=== PATIENT | female | born 1970 | race Two or more races ===

== ENCOUNTER → 2024-04-19 | Outpatient (CLI) | payer BC, SELFPAY ==
[2024-04-19 13:23] LABS: Collection Type, Urine Clean Catch
[2024-04-19 13:45] LABS: Basophils % (Auto) 1 % (0-2.5); Eosinophils # (Auto) 0.3 Thou/mm3 (0.0-0.5); Eosinophils % (Auto) 4 % (0-10); Hematocrit 40.2 % (36.0-46.0); Hemoglobin 13.4 g/dL (12.0-16.0); Immature Granulocytes % (Auto) 0 % (0-0); Immature Granulocytes Auto 0.01 Thou/mm3 (0.00-0.00); Lymphocytes # (Auto) 2.5 Thou/mm3 (1.0-4.8); Lymphocytes % (Auto) 42 % (10-50); Mean Corpuscular HGB Conc 33.3 g/dl (31.0-37.0); Mean Corpuscular Hemoglobin 29.6 pg (25.0-35.0); Mean Corpuscular Volume 89 fL (80-100); Monocytes # (Auto) 0.4 Thou/mm3 (0.0-0.8); Monocytes % (Auto) 7 % (0-12); Neutrophils # (Auto) 2.8 Thou/mm3 (1.8-7.7); Neutrophils % (Auto) 46 % (37-80); Nucleated Red Blood Cell % 0 /100 WBC (0); Platelet Count 117 Thou/mm3 (140-440); RDW Standard Deviation 44.2 fL (36.4-46.3); Red Blood Count 4.52 Miln/mm3 (4.00-5.20)
[2024-04-19 13:49] LABS: Glucose Estimated Average 209 mg/dL (80-131); Hemoglobin A1C 8.9 % Hgb (4.8-6.0)
[2024-04-19 13:51] LABS: Bacteria,Urine Rare; Bilirubin,Urine Negative (Negative); Blood,Urine Negative (Negative); Color,Urine Yellow (Lt Yel-Yel); Glucose, Urine 1+ (Negative); Hyaline Casts,Urine < 1 /hpf (0-1); Ketones,Urine Negative (Negative); Leukocyte Esterase,Urine Positive (Negative); Nitrite,Urine Negative (Negative); PH,Urine 5.5 (5.0-7.0); Protein,Urine 1+ (Neg - Trace); RBC,Urine 4 /hpf (0-3); Squamous Epithelial Cell,Urine 15 /hpf (0-5); Urobilinogen,Urine Negative mg/dL (0.0-1.0); WBC,Urine 25 /hpf (0-5)
[2024-04-19 13:56] LABS: Alanine Aminotransferase 74 U/L (10-49); Albumin, Serum 4.4 gm/dL (3.5-5.0); Albumin/Globulin Ratio 1.6 (1.2-2.2); Alkaline Phosphatase 181 U/L (46-116); Anion Gap 10 (7-16); Aspartate Amino Transferase 43 U/L (0-34); BUN/Creatinine Ratio 25 Ratio (12-20); Bilirubin,Total 0.5 mg/dL (0.3-1.2); Blood Urea Nitrogen 15 mg/dL (9-23); Calcium 9.2 mg/dL (8.3-10.6); Calcium (Corrected) 9.2 mg/dL (8.5-10.1); Carbon Dioxide 23.5 mMol/L (20.0-31.0); Cardiac Risk Estimate 3.1 RATIO (3.7-5.6); Chloride 102 mMol/L (98-107); Cholesterol 168 mg/dL (132-200); Creatinine (Component) 0.6 mg/dL (0.6-1.3); Globulin 2.8 gm/dL (2.3-3.5); Glucose 229 mg/dL (74-106); HDL Cholesterol 55 mg/dL (40-60); LDL Cholesterol,Calculated 84 mg/dL (0-130); Osmolality,Calculated 277 (275-295); Potassium 3.9 mMol/L (3.4-5.1); Sodium 135 mMol/L (136-145); Thyroid Stimulating Hormone 1.74 uIU/mL (0.55-4.78); Total Protein 7.2 gm/dL (5.7-8.2); Triglycerides 143 mg/dL (30-150); eGFR > 60 See Note
[2024-04-19 13:59] LABS: Clarity,Urine Hazy (Clear/Hazy)
[2024-04-19 14:05] LABS: Creatinine MALB Rnd Ur 189 mg/dL (30-125); Microalbumin Creat Ratio 116 mg/gCrea (<30); Microalbumin, Random Urine 219 mg/L (0-300)
== END | disposition home or self-care (01) ==
LOC: COPL 12:07
PROVIDERS: PCP Internal Medicine; Referring Provider Internal Medicine; Visit Provider Internal Medicine
DX: N17.9 Acute kidney failure, unspecified (principal); E11.9 Type 2 diabetes mellitus without complications; I10 Essential (primary) hypertension; E78.5 Hyperlipidemia, unspecified
CPT/HCPCS: 36415; 80053; 80061; 81001; 82043; 82570; 83036; 84443; 85025

== ENCOUNTER → 2024-05-23 | Outpatient (CLI) | payer BC, SELFPAY ==
--- NOTE | 2024-05-23 09:21 | XR_ITS ---
Examination: Hand, left 3 views Technique: Hand AP, oblique, lateral 3 views Date and time of exam: May 23, 2024 0926 hours INDICATIONS: Left hand pain beginning 2 months ago. FINDINGS: Significant osteopenia No fracture or dislocation Mild osteoarthritis interphalangeal joints first carpometacarpal joint radiocarpal joint No erosive arthritis No opaque foreign bodies or cortical bone destruction IMPRESSION: Significant osteopenia Mild osteoarthritis
== END | disposition home or self-care (01) ==
PROVIDERS: PCP Internal Medicine; Referring Provider Nurse Practitioner Gerontology; Visit Provider Nurse Practitioner Gerontology
DX: M85.842 Other specified disorders of bone density and structure, left hand (principal); M19.042 Primary osteoarthritis, left hand
CPT/HCPCS: 73130

== ENCOUNTER 2024-09-29 15:05 | Observation (INO) | payer BC, SELFPAY ==
[2024-09-29] VITALS (11 sets, daily range): BP systolic 143–165; BP diastolic 82–110; PULSE 83–107; RESP 14–95; TEMP 36.2–37; O2SAT 93–99; BMI 32.4
--- NOTE | 2024-09-29 15:13 | EKG_ITS ---
[facility] Test Date: 2024-09-29 Pat Name: THOMAS ARIAS Department: Room: - Gender: Female Dolly Operator: : 1970 Requested By: Jorgito Villareal (GIOVANNA) Order Number: [id number] Reading MD: Jorgito Villareal (EEG TECHNICIAN) Measurements Intervals Brave Rate: 93 P: 45 OR: 180 QRS: -7 QRSD: 81 T: 24 QT: 375 QTc: 468 Interpretive Statements SINUS RHYTHM POSSIBLE ANTERIOR MYOCARDIAL INFARCTION , OF INDETERMINATE AGE [30 ms Q WAVE IN V3/V4, OR R < 0.2 mV IN V4] Compared to ECG 05/14/2021 08:48:21 Myocardial infarct finding now present /store/S0/[id number]/ecg/[id number].pdf
[2024-09-29] MEDS: SODIUM CHLORIDE 0.9% 1000 ML 1,000 ML 999 ML IV (15:47)
[2024-09-29] MEDS: ONDANSETRON INJ 2 MG/ML INJ 2 ML 4 MG IVP (15:47)
[2024-09-29 15:50] LABS: Base Excess, Venous 2 (-3-3); O2 Saturation, Venous 67 % (96-97); PCO2, Venous 41 mmHg (36-56); PO2, Venous 33 mmHg (15-58); pH, Venous 7.42 (7.33-7.66)
--- NOTE | 2024-09-29 15:50 | PD.EDADULT ---
ED General RME/HPI General Chief complaint: Nausea/Vomiting/Diarrhea Stated complaint: VOMITING AND DIZZY Time Seen by Provider: 09/29/24 15:08 Arrival date/time: 09/29/24 15:05 Limitations: no limitations RME / HPI RME / HPI narrative: DR. MORATAYA MAIN ED EVALUATION: 54 year old female presents to the Emergency Department accompanied by her with complaint of dizziness onset 8 PM yesterday. Per patient, her dizziness got worse since 830 AM today and she started having nausea, vomiting and diarrhea, brown colored. She states when she lays down her symptoms are better but when she gets up they are worse; per she has been in bed. She states she has history of diabetes and she has not taken her medications because she ran out a month ago; her blood glucose at home was 420 . She states she had a good breakfast consisting of eggs and potatoes. PMHx: History of seizures in the past, years ago. Diabetes, off medications in the last month. Family history is significant for diabetes, mother. Social Hx: No tobacco, alcohol, or substance use. Related Data Home Medications ?Medication ?Instructions ?Recorded ?Confirmed gabapentin 100 mg capsule 100 mg PO HS 05/14/21 06/20/23 metformin 500 mg tablet,extended 1,000 mg PO BID 05/14/21 06/20/23 release 24 hr empagliflozin 10 mg tablet 10 mg PO QDAY 06/20/23 06/20/23 (Jardiance) semaglutide 14 mg tablet (Rybelsus) 14 mg PO DAILY 06/20/23 06/20/23 Allergies Allergy/AdvReac Type Severity Reaction Status Date / Time morphine Allergy Seizure Verified 09/29/24 15:05 Review of Systems Review of Systems Systems Reviewed: All systems reviewed, normal except as documented Past Medical History Past Medical History NEUROLOGIC: Positive Neurological Disorders GASTROINTESTINAL: Positive Gastrointestinal Disorders and Hemorrhoids REPRODUCTIVE: Positive Previous Pregnancies ENDOCRINE: Positive Endocrine Disorders, Diabetes Mellitus Type 2 and Hypothyroidism OTHER HISTORY: Positive Shingles, Anesthesia Reactions (SENSITIVE TO MEDICATIONS), Chicken Pox, Measles and Mumps Family History FAMILY HISTORY: Positive Family Cardiac Disorders Surgical History SURGICAL: Positive Tubal Ligation and Section (x2) Social History SMOKING STATUS: Never smoker SUBSTANCE USE: does not use ALCOHOL: Never ED Exam General Limitations: Present no limitations General appearance: Present alert and in no apparent distress Head Head exam: Present atraumatic, normocephalic and normal inspection Eye Eye exam: Present normal appearance, PERRL and EOMI ENT ENT exam: Present normal exam, normal oropharynx and mucous membranes moist Neck Neck exam: Present normal inspection, full ROM and trachea midline Chest Chest inspection: Present normal inspection and symmetric chest wall rise Respiratory Respiratory exam: Present normal lung sounds bilaterally Cardiovascular Cardiovascular exam: Present regular rate, normal rhythm and normal heart sounds Abdominal Exam Abdominal exam: Present soft and normal bowel sounds Extremities Exam Extremities exam: Present normal inspection and full ROM; Absent pedal edema or joint swelling Back Exam Back exam: Present normal inspection and full ROM Neurological Exam Neurological exam: Present alert, oriented X3, CN II-XII intact and other (nonfocal) Psychiatric Psychiatric exam: Present normal affect and normal mood Skin Skin exam: Present warm, dry, intact and normal color Course Quality Measures none Orders Category Date Time Status Bedside Blood Glucose NOW Care 09/29/24 15:13 Active Bedside Blood Glucose NOW Care 09/29/24 16:18 Active Disc Pad Plate Filler NOW Care 09/29/24 16:18 Active Continuous Pulse Oximetry NOW Care 09/29/24 16:18 Completed EKG (ED ONLY) *Do not use* NOW Care 09/29/24 15:13 Completed In and Out Catheter NEEDED Care 09/29/24 16:18 Active Insert IV NOW Care 09/29/24 15:13 Active Insert IV NOW Care 09/29/24 16:18 Active NIH Stroke Scale now Care 09/29/24 16:18 Active NPO NOW Care 09/29/24 16:18 Active Neuro Check Q15MIN Care 09/29/24 16:18 Active Nurse Swallow Screen x1 Care 09/29/24 16:18 Active Consult to Neurology / Tele-Neurology Routine Cons 09/29/24 16:[address] angio stroke protocol Stat Exams 09/29/24 16:[address] stroke protocol Stat Exams 09/29/24 16:18 Completed EKG (ED Only) Stat Exams 09/29/24 15:13 Draft A1C [Glycohemoglobin w (eAG)] Stat Lab 09/29/24 15:41 Completed Alcohol, Blood Medical Stat Lab 09/29/24 15:41 Results B-Type Natriuretic Peptide Stat Lab 09/29/24 15:41 Completed Beta Hydroxybutyrate Stat Lab 09/29/24 15:41 Results CBC Stat Lab 09/29/24 15:41 Completed Comprehensive Metabolic Panel Stat Lab 09/29/24 15:41 Results Drug Screen,Urine Stat Lab 09/29/24 17:19 Ordered HCG,Qualitative Serum Stat Lab 09/29/24 15:41 Results Magnesium Stat Lab 09/29/24 15:41 Results Partial Thromboplastin Time Stat Lab 09/29/24 15:41 Completed Prothrombin Time with INR Stat Lab 09/29/24 15:41 Completed Troponin I Stat Lab 09/29/24 15:41 Results Urinalysis Stat Lab 09/29/24 17:19 Ordered Urinalysis Stat Lab 09/29/24 17:19 Ordered Urine Culture Stat Lab 09/29/24 17:19 Ordered VBG [Venous Blood Gas] Stat Lab 09/29/24 15:41 Completed Ondansetron Inj [Zofran Inj] Med 09/29/24 15:14 Discontinued 4 mg IVP X1 ONE Sodium Chloride 0.9% 1000 ml [Ns] 1,000 ml Med 09/29/24 15:12 Discontinued IV 999 mls/hr Sodium Chloride 0.9% 1000 ml [Ns] 1,000 ml Med 09/29/24 16:30 Active IV Q10H Oxygen Delivery NOW RT 09/29/24 16:18 Active Vital Signs Vital signs: Vital Signs Pulse Rate 107 H 09/29/24 15:10 Respiratory Rate 20 09/29/24 15:10 Blood Pressure 165/89 H 09/29/24 15:10 Pulse Oximetry (%) 99 09/29/24 15:10 Oxygen Delivery Method Room Air 09/29/24 15:10 Discharge Plan Prescriptions/Referrals Prescriptions/Med Rec: No Action gabapentin 100 mg Capsule 100 mg PO HS metformin 500 mg tablet extended release 24 hr 1,000 mg PO BID Jardiance 10 mg tablet 10 mg PO QDAY Rybelsus 14 mg tablet 14 mg PO DAILY Referrals: No Primary/Family,Physician [Referring Provider] - In 1 week Patient/Caregiver Discharge Instructions Print Language: Albanian [facility] Narrative Sign out note: 1800: Patient was signed out to Dr. Elise. Past medical, surgical, social and family history reviewed. Vitals and home medications reviewed. Results and treatment plan discussed. They will assume the care of the patient at this time and will follow the patient, pending head/neck CTA, reaminder of labs, and final disposition. [facility] hospital course: I, Gisselle Yordy, am scribing for and in the presence of Dr. Morataya. Clinical Information Provided by patient Medical Records Reviewed [facility] Meds/Rx Considered, not Ordered None Labs/Rad/Tests considered, not Ordered None Chronic Illness/Social Conditions Add or document further as needed: PMHx: History of seizures in the past, years ago. Diabetes, off medications in the last month. Family history is significant for diabetes, mother. Social Hx: No tobacco, alcohol, or substance use. EKG Interpretation EKG #1: Date/time of EK09/29/24 3:30 pm EKG interpretation: sinus rhythm, rate 93, poor R wave progression, no acute changes, TX interval 180 ms, QRS duration 81 ms, QT/QTc 375/426, P-R-T axis 45, -7, 24 Imaging Imaging interpretation: interpreted by me Provider imaging interpretation(s): Head CT is negative. Still pending head/neck CTA. Radiology reports / interpretation(s): Procedure(s): CT stroke protocol Accession Number(s): [id number] cc: Pedro Morataya MD; Eb Corea MD; NO PRIMARY/FAMILY,PHYSICIAN~ Examination: CT brain head without contrast. 2-D sagittal coronal reconstructions Date and time of exam:July 30, 2024 1630 hours Comparison July 06, 2020 INDICATIONS: Stroke alert, onset focal neurologic deficit today CTDI: vol (mGy):48.5 DLP: (mGycm):934 Technique: Multiple CT axial sections of the brain have been obtained, 5 mm slice thickness. Contrast has not been administered. 2-D sagittal, coronal reconstructions have been obtained Low dose protocols were performed. One or more of the following dose reduction techniques were used; automated exposure control, adjustment of the mA and/or KV according to patient size, use of iterative reconstruction technique. Findings: No significant ventricular enlargement. Intra-axial or extra-axial hemorrhage density is not seen. No mass effect or midline shift Basal cisterns are not remarkable. Fourth ventricle is midline. Cranial vault intact. Impression: Negative for acute hemorrhage, mass effect or midline shift Dictated By: Eb Corea MD Medication Administration(s) Medication Administration History Sodium Chloride (Ns) 1,000 mls @ 100 mls/hr IV Q10H KATIE Stop: 10/29/24 16:29 Last Admin: 09/29/24 17:03 Dose: 100 mls/hr Documented By: TM Discontinued Medications Sodium Chloride (Ns) 1,000 mls @ 999 mls/hr IV .Q1H1M ONE Stop: 09/29/24 16:12 Last Infusion: 09/29/24 16:48 Dose: Infused Documented By: Admin: 09/29/24 15:47 Dose: 999 mls/hr Documented By: TM Ondansetron HCl (Ondansetron Inj 2 Mg/Ml Inj 2 Ml) 4 mg IVP X1 ONE; Protocol Stop: 09/29/24 15:15 Last Admin: 09/29/24 15:47 Dose: 4 mg Documented By: TM Diagnosis Differential dx and/or dx ruled out: benign paroxysmal positional vertigo, vestibular neuriti, DKA, hyperglycemia, dehydration Most likely dx, and/or detailed dx discussion: No official diagnoses at this time, still pending diagnostic tests. Patient signout to the awake overnight counselor provider. Dispositon Disposition: other (Patient signout to the awake overnight counselor provider. )
[2024-09-29 15:52] LABS: Basophils % (Auto) 0 % (0-2.5); Eosinophils # (Auto) 0.1 Thou/mm3 (0.0-0.5); Eosinophils % (Auto) 2 % (0-10); Hematocrit 40.8 % (36.0-46.0); Hemoglobin 14.2 g/dL (12.0-16.0); Immature Granulocytes % (Auto) 1 % (0-0); Immature Granulocytes Auto 0.03 Thou/mm3 (0.00-0.00); Lymphocytes # (Auto) 1.8 Thou/mm3 (1.0-4.8); Lymphocytes % (Auto) 29 % (10-50); Mean Corpuscular HGB Conc 34.8 g/dl (31.0-37.0); Mean Corpuscular Hemoglobin 30.5 pg (25.0-35.0); Mean Corpuscular Volume 88 fL (80-100); Monocytes # (Auto) 0.4 Thou/mm3 (0.0-0.8); Monocytes % (Auto) 7 % (0-12); Neutrophils # (Auto) 3.8 Thou/mm3 (1.8-7.7); Neutrophils % (Auto) 62 % (37-80); Nucleated Red Blood Cell % 0 /100 WBC (0); Platelet Count 118 Thou/mm3 (140-440); RDW Standard Deviation 43.2 fL (36.4-46.3); Red Blood Count 4.66 Miln/mm3 (4.00-5.20); White Blood Count 6.2 Thou/mm3 (3.6-11.0)
[2024-09-29 15:54] LABS: Beta Hydroxybutyrate 0.4 mmol/L (<0.6)
[2024-09-29 16:10] LABS: B-Type Natriuretic Peptide 29 pg/mL (0-100); HCG,Qualitative Serum Negative
[2024-09-29 16:15] LABS: Alanine Aminotransferase 107 U/L (10-49); Albumin, Serum 4.6 gm/dL (3.5-5.0); Albumin/Globulin Ratio 1.2 (1.2-2.2); Alkaline Phosphatase 250 U/L (46-116); Anion Gap 14 (7-16); Aspartate Amino Transferase 107 U/L (0-34); BUN/Creatinine Ratio 13 Ratio (12-20); Bilirubin,Total 0.6 mg/dL (0.3-1.2); Blood Urea Nitrogen 9 mg/dL (9-23); Calcium 9.8 mg/dL (8.3-10.6); Calcium (Corrected) 9.8 mg/dL (8.5-10.1); Carbon Dioxide 24.4 mMol/L (20.0-31.0); Chloride 94 mMol/L (98-107); Creatinine (Component) 0.7 mg/dL (0.6-1.3); Estimated Creatinine Clearance 73.1 mL/min (>60); Globulin 3.7 gm/dL (2.3-3.5); Magnesium 1.6 mg/dL (1.6-2.6); Osmolality,Calculated 280 (275-295); Potassium 4.1 mMol/L (3.4-5.1); Sodium 132 mMol/L (136-145); Total Protein 8.3 gm/dL (5.7-8.2); Troponin I < 0.002 ng/mL (0.0-0.045); eGFR > 60 See Note
[2024-09-29 16:16] LABS: Glucose 413 mg/dL (74-106)
--- NOTE | 2024-09-29 16:18 | XR_ITS ---
Examination: CTA carotids with intravenous contrast CTA brain, head with intravenous contrast. 2-D sagittal, coronal reconstructions. 3-D reconstructions. Exam date and time: September 29, 2024 at 1646 hours INDICATIONS: Stroke alert onset focal neurologic deficit CTDI: vol (mGy) 35.5 DLP: (mGycm) 4 Technique: Multiple CTA axial brain, head carotid images post intravenous contrast injection 70 cc, [id number]. 2-D sagittal, coronal reconstructions. 3-D reconstructions, 3-D post processing including vascular maximum intensity projection images. Low dose protocols were performed. One or more of the following dose reduction techniques were used; automated exposure control, adjustment of the mA and/or KV according to patient size, use of iterative reconstruction technique. Findings: 14 mm left thyroid nodule No significant common carotid carotid bifurcation or internal carotid artery stenoses Right neck vertebral artery is dominant with no critical stenoses No cerebral large vessel arterial occlusions or thrombus IMPRESSION: 14 mm left thyroid nodule, consider thyroid sonography follow-up No significant neck arterial stenoses No cerebral large vessel arterial occlusions
--- NOTE | 2024-09-29 16:18 | XR_ITS ---
Examination: CT brain head without contrast. 2-D sagittal coronal reconstructions Date and time of exam:July 30, 2024 1630 hours Comparison July 06, 2020 INDICATIONS: Stroke alert, onset focal neurologic deficit today CTDI: vol (mGy):48.5 DLP: (mGycm):934 Technique: Multiple CT axial sections of the brain have been obtained, 5 mm slice thickness. Contrast has not been administered. 2-D sagittal, coronal reconstructions have been obtained Low dose protocols were performed. One or more of the following dose reduction techniques were used; automated exposure control, adjustment of the mA and/or KV according to patient size, use of iterative reconstruction technique. Findings: No significant ventricular enlargement. Intra-axial or extra-axial hemorrhage density is not seen. No mass effect or midline shift Basal cisterns are not remarkable. Fourth ventricle is midline. Cranial vault intact. Impression: Negative for acute hemorrhage, mass effect or midline shift
[2024-09-29 16:28] LABS: Partial Thromboplastin Time 25.6 Seconds (22.0-36.0); Prothrombin Time 11.4 Seconds (9.0-12.2)
--- NOTE | 2024-09-29 16:49 | ESCONSULT_ITS ---
Tele Neuro Consultation Consultation Date 09/29/24 Most Recent Vital Signs Last Vital Signs Pulse 107 H 09/29/24 15:10 Resp 20 09/29/24 15:10 BP 165/89 H 09/29/24 15:10 Pulse Ox 99 09/29/24 15:10 O2 Del Method Room Air 09/29/24 15:10 Laboratory-Coagulation Panel PT 11.4 Seconds (9.0-12.2) 09/29/24 15:41 INR 1.0 (0.9-1.3) 09/29/24 15:41 APTT 25.6 Seconds (22.0-36.0) 09/29/24 15:41 Consultation Narrative [facility] Tele[facility] Patient Name:???Fernanda Carlton Date of :???1970 Identification Number:??? Date of Service:???09/29/2024 16:21:57 Diagnosis:?R42 - Dizziness/ Vertigo/ Giddiness Impression: ?This patient is a 54-year-old female with a past medical history of diabetes, hypertension, hyperlipidemia presenting for evaluation of dizziness. The patient has possible right upper extremity ataxia which could indicate underlying acute ischemic stroke out of the window for thrombolytic administration. Her symptoms do fluctuate and migraine with aura as well as functional neurologic disorder also on the differential. Recommend admission for MRI brain to rule out acute ischemic stroke and workup for underlying metabolic derangements. Our recommendations are outlined below. Recommendations: ? Stroke/Telemetry Floor ? Neuro Checks (Q4) ? Bedside Swallow Eval ? DVT Prophylaxis ? IV Fluids, Normal Saline ? Head of Bed 30 Degrees ? Euglycemia and Avoid Hyperthermia (PRN Acetaminophen) ? Initiate or continue Aspirin 81 MG daily ? Antihypertensives PRN if Blood pressure is greater than 220/120 or there is a concern for End organ damage/contraindications for permissive HTN. If blood pressure is greater than 220/120 give labetalol PO or IV or Vasotec IV with a goal of 15% reduction in BP during the first 24 hours. Sign Out: ? Discussed with Emergency Department Provider Advanced Imaging: Advanced imaging has been ordered. Results pending. Metrics: Last Known Well: 09/28/2024 21:00:00 Dispatch Time: 09/29/2024 16:21:57 Arrival Time: 09/29/2024 15:05:00 Initial Response Time: 09/29/2024 16:24:02Symptoms: dizziness. Initial patient interaction: 09/29/2024 16:27:04 NIHSS Assessment Completed: 09/29/2024 16:32:40Patient is not a candidate for Thrombolytic. Thrombolytic Medical Decision: 09/29/2024 16:32:41Patient was not deemed candidate for Thrombolytic because of following reasons: LKW outside 4.[address] Head: I personally reviewed all the CT images that were available to me and it showed: no acute findings Primary Provider Notified of Diagnostic Impression and Management Plan on: 09/29/2024 16:46:44 History of Present Illness:Patient is a 54 year old Female. Patient was brought by private transportation with symptoms of dizziness. This patient is a 54-year-old female with a past medical history of diabetes, hypertension, hyperlipidemia presenting for evaluation of dizziness. The patient states that she has been experiencing vertigo as well as a feeling of lightheadedness and unsteadiness on her feet since 8 PM last night. As her symptoms have not resolved and have somewhat worsened in the last several hours she decided to come to the hospital for further evaluation. She does endorse experiencing nausea, vomiting, and intermittent diarrhea as well. Denies focal neurologic changes. Past Medical History: ?Hypertension ?Diabetes Mellitus ?Hyperlipidemia ?There is no history of Atrial Fibrillation ?There is no history of Stroke Medications: No Anticoagulant use? No Antiplatelet use Reviewed EMR for current medications Allergies:? Reviewed Social History: Drug Use: No Family History: There is no family history of premature cerebrovascular disease pertinent to this consultation ROS : 14 Points Review of Systems was performed and was negative except mentioned in HPI. Past Surgical History: There Is No Surgical History Contributory To Today?s Visit Examination: BP(165/89),?Pulse(107),?Blood Glucose(413) 1A: Level of Consciousness - Arouses to minor stimulation?+ 1 1B: Ask Month and Age - Both Questions Right?+ 0 1C: Blink Eyes & Squeeze Hands - Performs Both Tasks?+ 0 2: Test Horizontal Extraocular Movements - Normal?+ 0 3: Test Visual Pierce - No Visual Loss?+ 0 4: Test Facial Palsy (Use Grimace if Obtunded) - Normal symmetry?+ 0 5A: Test Left Arm Motor Drift - No Drift for 10 Seconds?+ 0 5B: Test Right Arm Motor Drift - No Drift for 10 Seconds?+ 0 6A: Test Left Leg Motor Drift - No Drift for 5 Seconds?+ 0 6B: Test Right Leg Motor Drift - No Drift for 5 Seconds?+ 0 7: Test Limb Ataxia (FNF/Heel-Nolasco) - Ataxia in 1 Limb?+ 1 8: Test Sensation - Normal; No sensory loss?+ 0 9: Test Language/Aphasia - Normal; No aphasia?+ 0 10: Test Dysarthria - Normal?+ 0 11: Test Extinction/Inattention - No abnormality?+ 0 NIHSS Score:?2 Pre-Morbid Modified [place] Scale:0 Points = No symptoms at all Spoke with :?forwarded to [place] [id number] This consult was conducted in real time using interactive audio and video technology. Patient was informed of the technology being used for this visit and agreed to proceed. Patient located in hospital and provider located at home/office setting. Patient is being evaluated for possible acute neurologic impairment and high probability of imminent or life-threatening deterioration. I spent total of 35 minutes providing care to this patient, including time for face to face visit via telemedicine, review of medical records, imaging studies and discussion of findings with providers, the patient and/or family. Dr Deven Carroll [facility] For Inpatient follow-up with [facility] physician please call [facility] at . As we are not an outpatient service for any post hospital discharge needs please contact the hospital for assistance. If you have any questions for the [facility] physicians or need to recons ult for clinical or diagnostic changes please contact us via [facility] at .
[2024-09-29] MEDS: SODIUM CHLORIDE 0.9% 1000 ML 1,000 ML 100 ML IV (17:03)
[2024-09-29 17:06] LABS: Glucose Estimated Average 217 mg/dL (80-131); Hemoglobin A1C 9.2 % Hgb (4.8-6.0)
[2024-09-29 17:37] LABS: Collection Type, Urine Catheter; Squamous Epithelial Cell,Urine 0 /hpf (0-5)
[2024-09-29 17:39] LABS: Alcohol, Blood Medical < 3.0 mg/dL (0-10.0)
[2024-09-29 17:53] LABS: Bilirubin,Urine Negative (Negative); Blood,Urine Negative (Negative); Clarity,Urine Clear (Clear/Hazy); Color,Urine Lt-Yellow (Lt Yel-Yel); Glucose, Urine 4+ (Negative); Ketones,Urine Negative (Negative); Leukocyte Esterase,Urine Negative (Negative); Nitrite,Urine Negative (Negative); PH,Urine 7.5 (5.0-7.0); Protein,Urine 1+ (Neg - Trace); RBC,Urine 4 /hpf (0-3); Specific Gravity,Urine 1.032 (1.001-1.035); Urobilinogen,Urine Negative mg/dL (0.0-1.0); WBC,Urine 3 /hpf (0-5)
--- NOTE | 2024-09-29 18:01 | PD.EDADDENDU ---
Emergency Room Addendum <Adamaris Chung - Last Filed: 09/29/24 18:24> Addendum Narrative: I took over the care from Dr. Morataya at 6 PM on 09/29/2024, see his notes for complete H&P and ED course. I reviewed all diagnostic test results. My review of the CT angio head and neck report is no significant neck arterial stenoses and no cerebral large vessel arterial occlusions. I discussed the case with our hospitalist. About the presentation and exam and diagnostics and treatments here. And need of further care in the hospital. Will accept the patient. <Antwan Elise MD - Last Filed: 09/29/24 18:50> Addendum Narrative: I took over the care from Dr. Morataya at 6 PM on 09/29/2024, see his notes for complete H&P and ED course. I was asked to review the CT reports. My review of the head CT report is NAD. My review of the CT angio head and neck report is no significant neck arterial stenoses and no cerebral large vessel arterial occlusions. I discussed the case with our telehealth neurologist and our hospitalist. About the presentation and exam and diagnostics and treatments here. And need of further care in the hospital. Will accept the patient. Antwan Elise MD
--- NOTE | 2024-09-29 19:25 | EVENTNT_ITS ---
Documentation for date of: 09/29/24 Event Note Event Note: Received call from ED attending Dr. Elise at 6:20 PM for admission. Will inform night on-call team. As per ED signout, 54-year-old female presented with ataxia to the ED. Teleneurology was consulted, NIHSS 2. Head CT negative for any acute findings. Per teleneuro recommendations, patient to be admitted for further stroke workup with MRI and inpatient neurology evaluation. To be signed out to night team Dr Hensley PGY2 and Dr Rico PGY1 , for possible admission. Plan of care discussed with attending Dr Dixon, Faith Yepez M.D. PGY2 Disclaimer: Minor errors in certified registered nurse anesthetist may be present as this note was dictated using voice recognition software.
[2024-09-29] MEDS: ASPIRIN 81 MG CHEW PO (21:28)
[2024-09-29] MEDS: INSULIN LISPRO (AdmeLOG) 1 UNIT/0.01 ML UNIT SC (21:28)
[2024-09-29] MEDS: ACETAMINOPHEN 500 MG TABLET PO (22:38)
[2024-09-29] MEDS: ONDANSETRON INJ 2 MG/ML INJ 2 ML 4 MG IV (22:40)
[2024-09-30] VITALS (7 sets, daily range): BP systolic 107–159; BP diastolic 61–87; PULSE 70–89; RESP 16–21; TEMP 36.1–36.5; O2SAT 94–97; BMI 32.5
[2024-09-30] MEDS: SODIUM CHLORIDE 0.9% 1000 ML 1,000 ML 100 ML IV ×2 (02:31→14:28)
[2024-09-30] MEDS: INSULIN LISPRO (AdmeLOG) 1 UNIT/0.01 ML UNIT SC ×4 (08:02→20:12)
--- NOTE | 2024-09-30 08:39 | PD.NEPHHP ---
Documentation for date of: 09/30/24 History of Present Illness History of Present Illness Chief complaint: Right-sided weakness History of present illness: Mr. Carlton is a 54 year old lady with a longstanding history of diabetes, hypertension, dyslipidemia, hypothyroidism, obesity, remote history of seizure from poorly controlled diabetes (on no seizure medications) presented to the emergency department brought by her with dizziness associated with nausea going on since last night and it got worse this morning. She was also having some loose stools. Patient apparently was supposed to see me and Dr. Pickering. meds for almost a month. In the emergency department teleneurology was called. Questionable stroke alert was called and and a CT brain, CT angiography negative for CVA. Patient admitted for observation to rule out stroke symptoms. This morning I saw the patient- at bedside. She did not have any right-sided weakness. She felt dizzy and the room spinning around associated with nausea consistent with vertigo. Also complaining of abdominal discomfort. Stat CT abdomen and pelvis showed no acute pathology. Probably related to underlying uncontrolled diabetes. Family history is significant for diabetes, mother. Social Hx: No tobacco, alcohol, or substance use. In the emergency department CBC was normal. Coags normal. ABG normal. Renal panel normal, blood sugar 413, A1c 9.2, AST 107, ALT 107, alk phos 250, troponin negative. Albumin 4.6. Amylase lipase, TSH normal. Beta hydroxy normal test normal. Urinalysis shows 1+ protein and 4+ glucose. No UTI symptoms. Head CT negative CTA negative CT abdomen and pelvis negative. EKG negative. Urine cultures pending. Patient was started on IV fluids and admitted to telemetry for observation. This morning her vertigo improved. Review of Systems Review of Systems Narrative Review of Systems: CONSTITUTIONAL: Patient denies any fever, chills. Complaining of fatigue HEENT: Denies any visual disturbances or hearing problems. CARDIOVASCULAR: Patient denies any chest pain, shortness of breath, swelling in the lower extremities. PULMONARY: Patient denies any shortness of breath, cough. GASTROINTESTINAL: Patient denies any constipation, nausea, vomiting, diarrhea. Complaining of lower abdominal discomfort GENITOURINARY: Patient denies any urinary symptoms of burning or frequency or hematuria, denies any form in the urine. SKIN: Denies any rash. MUSCULOSKELETAL: Denies any muscular skeletal problems of joint pains. NEUROLOGICAL: Denies any neurological problems of strokes, seizures or confusion. Denies any memory problems. PSYCHIATRIC: Denies any depression or anxiety. LYMPHATICS : No lymphadenopathy Past Medical History Past Medical History NEUROLOGIC: Positive Neurological Disorders; Negative Seizures CARDIAC: Negative Cardiac Disorders or Congestive Heart Failure RESPIRATORY: Negative Chronic Obstructive Pulmonary Disease (COPD) or Asthma GASTROINTESTINAL: Positive Gastrointestinal Disorders and Hemorrhoids; Negative Hepatitis GENITOURINARY: Negative Genitourinary Disorders or Renal Disease REPRODUCTIVE: Positive Previous Pregnancies MUSCULOSKELETAL: Negative Musculoskeletal Disorders or Carpal Tunnel Syndrome ENDOCRINE: Positive Endocrine Disorders, Diabetes Mellitus Type 2 and Hypothyroidism; Negative Diabetes Mellitus Type 1 HEMATOLOGIC: Negative Blood Disorders or Sickle Cell Disease OTHER HISTORY: Positive Shingles, Anesthesia Reactions (SENSITIVE TO MEDICATIONS), Chicken Pox, Measles and Mumps; Negative Autoimmune Disease, Down Syndrome, Developmental Delay, Falls, Blood Transfusions, MRSA, Clostridium Difficile or Cancer Family History FAMILY HISTORY: Positive Family Cardiac Disorders; Negative Family Anesthesia Reaction Surgical History SURGICAL: Positive Tubal Ligation and Section (x2); Negative Cardiac Surgery, Endocrine Surgery, Ear Surgery, Eye Surgery, Nose Surgery, Oral Surgery, Tonsillectomy, Abdominal Surgery, Joint Replacement, Amputation, Open Reduction Internal Fixation, Arthroscopy or Neurologic Surgery Social History SMOKING STATUS: Never smoker SUBSTANCE USE: does not use Meds Home Medications and Allergies Home Medications ?Medication ?Instructions ?Recorded ?Confirmed ?Type gabapentin 100 mg capsule 100 mg PO HS 05/14/21 09/30/24 History metformin 500 mg tablet,extended 1,000 mg PO BID 05/14/21 09/30/24 History release 24 hr empagliflozin 10 mg tablet 10 mg PO QDAY 06/20/23 09/30/24 History (Jardiance) semaglutide 14 mg tablet (Rybelsus) 14 mg PO DAILY 06/20/23 09/30/24 History celecoxib 200 mg capsule 200 mg PO BID PRN knee pain 09/30/24 09/30/24 History diclofenac sodium 1 % topical gel 3 g topical PRN PRN knee pain 09/30/24 09/30/24 History ergocalciferol (vitamin D2) 1,250 1,250 mcg PO .weekly 09/30/24 09/30/24 History mcg (50,000 unit) capsule glipizide 5 mg tablet 5 mg PO QDAY 09/30/24 09/30/24 History levothyroxine 88 mcg tablet 88 mcg PO QDAY 09/30/24 09/30/24 History lidocaine 5 % topical patch 1 patch topical QDAY PRN pain 09/30/24 09/30/24 History Allergies Allergy/AdvReac Type Severity Reaction Status Date / Time morphine Allergy Seizure Verified 09/29/24 15:05 Exam Vital Signs Temp Pulse Resp BP Pulse Ox O2 Del Method 36.1 C 71 16 125/68 94 L Room Air 09/30/24 08:00 09/30/24 08:00 09/30/24 08:00 09/30/24 08:00 09/30/24 08:00 09/30/24 08:00 Narrative Exam GENERAL APPEARANCE: Patient seems to be comfortable, adequately hydrated and nourished. HEENT: EOMI, PERRLA NECK: Neck supple, no JVD or bruit CARDIOVASCULAR: Heart regular, no murmurs LUNGS/CHEST: Chest clear to auscultation. No rales, rhonchi, wheezing ABDOMEN: Soft, nondistended. No masses. Normal bowel sounds. Discomfort noted in the lower abdomen EXTREMITIES: No edema, clubbing or cyanosis. SKIN: Skin exam normal without any rashes MUSCULOSKELETAL: Musculoskeletal exam normal PSYCHIATRIC: Normal mood, affect LYMPHATICS: No lymphadenopathy noted NEUROLOGICAL : No neurological deficits Results: Labs 09/29/24 15:41 09/30/24 12:07 Labs: Short CBC 09/29/24 Range/Units 15:41 WBC 6.2 (3.6-11.0) Thou/mm3 Hgb 14.2 (12.0-16.0) g/dL Hct 40.8 (36.0-46.0) % Plt Count 118 L (140-440) Thou/mm3 BMP 09/29/24 15:41 Sodium 132 L Potassium 4.1 Chloride 94 L Carbon Dioxide 24.4 BUN 9 Creatinine 0.7 Glucose 413 H* Calcium 9.8 Cardiac Enzymes 09/29/24 Range/Units 15:41 Troponin I < 0.002 (0.0-0.045) ng/mL Liver Function 09/29/24 Range/Units 15:41 Total Bilirubin 0.6 (0.3-1.2) mg/dL AST 107 H (0-34) U/L ALT 107 H (10-49) U/L Alkaline Phosphatase 250 H (46-116) U/L Albumin 4.6 (3.5-5.0) gm/dL Urine 09/29/24 Range/Units 17:25 Urine Color Lt-Yellow (Lt Yel-Yel) Urine Clarity Clear (Clear/Hazy) Urine pH 7.5 H (5.0-7.0) Ur Specific [place] 1.032 (1.001-1.035) Urine Protein 1+ A (Neg - Trace) Urine Glucose (UA) 4+ A (Negative) ABG Interpretation ABG results: 09/29/24 15:41 VBG pH 7.42 VBG pCO2 41 VBG pO2 33 VBG Base Excess 2 Assessment & Plan Assessment and plan (1) Dizziness: Status: Acute Assessment and plan: Dizziness associated with vertigo-like symptoms, nausea, vomiting-CT brain/CTA negative. Doubt stroke. Patient seems to have BPPV. Currently stable. Of note patient was also having weakness related to uncontrolled diabetes for the last 1 month. She ran out of her medications a month ago. (2) Diabetes: Status: Acute Assessment and plan: Accu-Cheks, sliding scale. A1c 9.1. Consistent carb low (3) Hypertension: Status: Acute Assessment and plan: Blood pressure 136/79-added lisinopril (4) Hypothyroidism (acquired): Status: Acute Assessment and plan: On levothyroxine. Check TSH (5) Hyperlipidemia: Status: Acute Assessment and plan: Hold statin due to elevated liver enzymes. CT abdomen negative. Improving. (6) Transaminitis: Status: Acute Assessment and plan: Mild elevation in liver enzymes noted. Improving. CT abdomen negative. Mild abdominal discomfort in the lower abdomen noted. Additional Assessment & Plan Additional Plan: Estimated length of stay 2 days DVT prophylaxis-not needed-ambulate GI prophylaxis not needed Disposition Home Quality Measures Quality Measures none
[2024-09-30] MEDS: ACETAMINOPHEN 500 MG TABLET PO ×2 (10:19→16:50)
--- NOTE | 2024-09-30 11:40 | XR_ITS ---
Examination: CT abdomen and pelvis without contrast. Coronal 3-D reconstructions. Sagittal 2-D reconstructions. Date and time of exam:September 30, 2024: 31 hours Comparison March 21, 2023 INDICATIONS: Abdominal pain today CTDI: vol (mGy): 9.62 DLP: (mGycm): 481 Technique: Axial images of the abdomen have been obtained, 3 mm slice thickness Intravenous contrast material has not been administered. Low dose protocols were performed. One or more of the following dose reduction techniques were used; automated exposure control, adjustment of the mA and/or KV according to patient size, use of iterative reconstruction technique. Findings: Liver is irregular in contour Gallbladder sludge versus small stones Spleen is not enlarged No pancreatic or adrenal mass No renal or ureteral calculi, no hydronephrosis 20 mm fat-containing umbilical hernia Normal appendix Atrophic anteverted uterus No bladder mass Moderate osteopenia IMPRESSION: Suspect primary hepatocellular disease Recommend hepatobiliary sonography follow-up to confirm gallstones/sludge
[2024-09-30] MEDS: INSULIN GLARGINE (Lantus) 5 UNIT/0.05 ML (PER 5 UNITS) 15 UNIT SC ×2 (12:21→20:13)
[2024-09-30 13:00] LABS: Alanine Aminotransferase 84 U/L (10-49); Albumin, Serum 3.8 gm/dL (3.5-5.0); Albumin/Globulin Ratio 1.2 (1.2-2.2); Alkaline Phosphatase 132 U/L (46-116); Anion Gap 9 (7-16); Aspartate Amino Transferase 84 U/L (0-34); BUN/Creatinine Ratio 13 Ratio (12-20); Bilirubin,Total 0.6 mg/dL (0.3-1.2); Blood Urea Nitrogen 8 mg/dL (9-23); Calcium 9.4 mg/dL (8.3-10.6); Calcium (Corrected) 9.6 mg/dL (8.5-10.1); Chloride 102 mMol/L (98-107); Creatinine (Component) 0.6 mg/dL (0.6-1.3); Estimated Creatinine Clearance 85.5 mL/min (>60); Globulin 3.2 gm/dL (2.3-3.5); Glucose 265 mg/dL (74-106); Lipase 46 U/L (12-53); Osmolality,Calculated 279 (275-295); Potassium 3.7 mMol/L (3.4-5.1); Sodium 136 mMol/L (136-145); eGFR > 60 See Note
[2024-09-30 13:12] LABS: Amylase 78 U/L (30-118)
[2024-09-30] MEDS: GABAPENTIN 100 MG CAPSULE PO (20:31)
[2024-10-01] VITALS: BP 138/83; PULSE 68; PULSE 74; RESP 18; TEMP 35.9; O2SAT 95
[2024-10-01 00:36] LABS: Collection Type, Urine Clean Catch
[2024-10-01 00:44] LABS: Bacteria,Urine Rare; Bilirubin,Urine Negative (Negative); Blood,Urine Negative (Negative); Clarity,Urine Clear (Clear/Hazy); Color,Urine Colorless (Lt Yel-Yel); Glucose, Urine 4+ (Negative); Ketones,Urine Negative (Negative); Leukocyte Esterase,Urine Positive (Negative); Nitrite,Urine Negative (Negative); Protein,Urine Negative (Neg - Trace); RBC,Urine < 1 /hpf (0-3); Specific Gravity,Urine 1.009 (1.001-1.035); Squamous Epithelial Cell,Urine 1 /hpf (0-5); Urobilinogen,Urine Negative mg/dL (0.0-1.0); WBC,Urine 3 /hpf (0-5)
[2024-10-01] MEDS: SODIUM CHLORIDE 0.9% 1000 ML 1,000 ML 100 ML IV ×2 (00:45→09:31)
[2024-10-01 00:50] LABS: Amphetamine/Methamp Scrn,U Negative (Negative); Barbiturate Screen,Urine Negative (Negative); Benzodiazepines Screen,Urine Negative (Negative); Benzoylecgonine Screen, Ur Negative (Negative); Fentanyl Screen,Urine Negative (Negative); Opiate Screen,Urine Negative (Negative); THC Screen,Urine Negative (Negative)
[2024-10-01 02:20] LABS: Creatinine,Random Urine 31 mg/dL (30-125); Protein Total, Random Urine 9 mg/dL (1-14)
[2024-10-01 04:00] VITALS: BP 125/76; PULSE 66; PULSE 68; RESP 15; TEMP 35.9; O2SAT 95
[2024-10-01] MEDS: LEVOTHYROXINE SODIUM 88 MCG TABLET PO (05:34)
[2024-10-01 05:37] VITALS: TEMP 36.3
[2024-10-01 05:38] LABS: Basophils % (Auto) 1 % (0-2.5); Eosinophils # (Auto) 0.3 Thou/mm3 (0.0-0.5); Eosinophils % (Auto) 4 % (0-10); Hematocrit 38.3 % (36.0-46.0); Immature Granulocytes % (Auto) 0 % (0-0); Immature Granulocytes Auto 0.01 Thou/mm3 (0.00-0.00); Lymphocytes # (Auto) 2.9 Thou/mm3 (1.0-4.8); Lymphocytes % (Auto) 48 % (10-50); Mean Corpuscular HGB Conc 33.9 g/dl (31.0-37.0); Mean Corpuscular Hemoglobin 30.2 pg (25.0-35.0); Mean Corpuscular Volume 89 fL (80-100); Monocytes # (Auto) 0.5 Thou/mm3 (0.0-0.8); Monocytes % (Auto) 9 % (0-12); Neutrophils # (Auto) 2.3 Thou/mm3 (1.8-7.7); Neutrophils % (Auto) 38 % (37-80); Nucleated Red Blood Cell % 0 /100 WBC (0); Platelet Count 100 Thou/mm3 (140-440); RDW Standard Deviation 44.6 fL (36.4-46.3)
[2024-10-01 05:47] VITALS: BMI 33.5
[2024-10-01 06:33] LABS: Alanine Aminotransferase 81 U/L (10-49); Albumin, Serum 3.8 gm/dL (3.5-5.0); Albumin/Globulin Ratio 1.3 (1.2-2.2); Alkaline Phosphatase 124 U/L (46-116); Anion Gap 9 (7-16); Aspartate Amino Transferase 87 U/L (0-34); BUN/Creatinine Ratio 12 Ratio (12-20); Bilirubin,Total 0.5 mg/dL (0.3-1.2); Blood Urea Nitrogen 7 mg/dL (9-23); Calcium 9.3 mg/dL (8.3-10.6); Calcium (Corrected) 9.5 mg/dL (8.5-10.1); Carbon Dioxide 26.4 mMol/L (20.0-31.0); Chloride 104 mMol/L (98-107); Creatinine (Component) 0.6 mg/dL (0.6-1.3); Estimated Creatinine Clearance 86.8 mL/min (>60); Glucose 126 mg/dL (74-106); Osmolality,Calculated 277 (275-295); Potassium 3.6 mMol/L (3.4-5.1); Sodium 139 mMol/L (136-145); Thyroid Stimulating Hormone 2.57 uIU/mL (0.55-4.78); Total Protein 6.8 gm/dL (5.7-8.2); eGFR > 60 See Note
[2024-10-01 06:47] LABS: Cardiac Risk Estimate 4.3 RATIO (3.7-5.6); Cholesterol 195 mg/dL (132-200); HDL Cholesterol 45 mg/dL (40-60); LDL Cholesterol,Calculated 124 mg/dL (0-130); Triglycerides 129 mg/dL (30-150)
[2024-10-01 08:00] VITALS: BP 118/71; PULSE 70; PULSE 76; RESP 16; TEMP 36.2; O2SAT 98
[2024-10-01] MEDS: glipiZIDE 5 MG TABLET PO (08:48)
[2024-10-01] MEDS: INSULIN GLARGINE (Lantus) 5 UNIT/0.05 ML (PER 5 UNITS) 15 UNIT SC (08:49)
--- NOTE | 2024-10-01 09:24 | PD.RESDS ---
Planned Discharge Date 10/01/24 DS: Providers Provider Date of admission: 09/29/24 20:14 Primary care physician: Artie Bush MD Admitting Provider: Artie Bush MD Attending Provider on Admission: Artie Bush MD Consults: 09/29/24 16:18 Consult to Neurology / Tele-Neurology Routine Comment: Consulting Provider: [facility] Attending Provider on DC: Artie Bush MD Discharging Provider: Jerad Falk MD DS: Diagnosis Problem List Completed Was Problem List Reviewed/Reconciled?: Yes Hospital Course Hospital Course Hospital course: Mr. Carlton is a 54 year old lady with a longstanding history of diabetes, hypertension, dyslipidemia, hypothyroidism, obesity, remote history of seizure from poorly controlled diabetes (on no seizure medications) presented to the emergency department brought by her with dizziness associated with nausea going In the emergency department teleneurology was called. Questionable stroke alert was called and and a CT brain, CT angiography negative for CVA. Patient admitted for observation to rule out stroke symptoms. The following day patient did not have right-sided weakness. CT A/P for abdominal pain with nausea was negative. Dizziness with associated nausea/vomiting determined to be likely due to BPPV. Of note patient ran out of her diabetic medication approximately 1 month ago. During hospital stay blood sugar was stable on 15 units Lantus twice daily. Patient had a urine culture during hospital stay, grew 20,000 colonies, likely contaminant. Patient medically stable and cleared for discharge. Discharge plan: You are being discharged with the following medication: - Lantus 15 mg injected twice daily The following medications have been STOPPED: - Metformin, Jardiance Continue taking all other medications as previously prescribed. Please follow-up with Dr. Bush in 1 week. Return to the ED if you develop new or worsening symptoms. Diagnoses: #Dizziness #Diabetes #Hypothyroidism (acquired) #Hyperlipidemia #Transaminitis Plan of care discussed with attending Dr. Bush. Jerad Falk MD PGY?1 Status at Discharge Cognitive/behavioral status at discharge: Stable Functional status at discharge: independent ambulation Overall status at discharge: patient is progressing back to baseline Time Spent with Patient Time attestation: Total time spent providing and/or coordinating discharge services: Time spent: Greater than 30 minutes Quality: Stroke Pt Provided Written Stroke Discharge Instructions: Yes Exam Vital Signs Temp Pulse Resp BP Pulse Ox O2 Del Method 97.1 F 70 16 118/71 98 Room Air 10/01/24 08:00 10/01/24 08:00 10/01/24 08:00 10/01/24 08:00 10/01/24 08:00 10/01/24 08:00 Narrative Exam GENERAL APPEARANCE: Patient seems to be comfortable, adequately hydrated and nourished. HEENT: EOMI, PERRLA NECK: Neck supple, no JVD or bruit CARDIOVASCULAR: Heart regular, no murmurs LUNGS/CHEST: Chest clear to auscultation. No rales, rhonchi, wheezing ABDOMEN: Soft, nondistended. No masses. Normal bowel sounds. Discomfort noted in the lower abdomen, improved EXTREMITIES: No edema, clubbing or cyanosis. SKIN: Skin exam normal without any rashes MUSCULOSKELETAL: Musculoskeletal exam normal PSYCHIATRIC: Normal mood, affect LYMPHATICS: No lymphadenopathy noted NEUROLOGICAL : No neurological deficits Discharge Plan Plan Patient Disposition: HOME (Self Care) Patient condition on transfer: Stable Care Plan Goals: You are being discharged with the following medication: - Lantus 15 mg injected twice daily The following medications have been STOPPED: - Metformin, Jardiance Continue taking all other medications as previously prescribed. Please follow-up with Dr. Bush in 1 week. Return to the ED if you develop new or worsening symptoms. Prescriptions/Referrals Prescriptions/Med Rec: New insulin glargine [Lantus Solostar U-100 Insulin] 100 unit/mL (3 mL) insulin pen 15 unit subcut BID Qty: 15 0RF Continued gabapentin 100 mg Capsule 100 mg PO HS Patient Comments: PRN Rybelsus 14 mg tablet 14 mg PO DAILY Patient Comments: Ran out glipizide 5 mg tablet 5 mg PO QDAY Patient Comments: TAKE 1 TABLET BY MOUTH EVERY DAY 30 MINUTES BEFORE BREAKFAST diclofenac sodium 1 % gel 3 g topical PRN PRN (Reason: knee pain) Patient Comments: APPLY 3 GRAMS TO LEFT AND RIGHT KNEE EVERY 12 HOURS celecoxib 200 mg capsule 200 mg PO BID PRN (Reason: knee pain) Patient Comments: TAKE 1 CAPSULE BY MOUTH TWICE A DAY ergocalciferol (vitamin D2) 1,250 mcg (50,000 unit) capsule 1,250 mcg PO .weekly Patient Comments: TAKE 1 CAPSULE BY MOUTH WEEKLY levothyroxine 88 mcg tablet 88 mcg PO QDAY Patient Comments: TAKE 1 TABLET BY MOUTH EVERY DAY lidocaine 5 % adhesive patch,medicated 1 patch TOPICAL QDAY PRN (Reason: pain) Patient Comments: APPLY 1 PATCH TOPICALLY DAILY Discontinued metformin 500 mg tablet extended release 24 hr 1,000 mg PO BID Patient Comments: Ran out Jardiance 10 mg tablet 10 mg PO QDAY Referrals: Artie Bush MD [Primary Care Provider] - Patient/Caregiver Discharge Instructions Education Materials: Nutrition Facts Labels and Diabetes, Healthy Meals for Diabetes, Eating Out When You Have Diabetes, Diabetes Shopping Preparing Meals, Diabetes Exercise Get Started, Diabetes Exercise Plan, Diabetes Learn Serve Portion Size, Diabetes: Meal Planning, Diabetes Carbs Fats Protein, Healthy Cooking Tips for People with Diabetes Print Language: [place]anian Stand Alone Forms: [facility] Award Info., Patient Portal Info Letter, Work/Release Restrictions Discharge Order Discharge Orders: Discharge (Routine); Ordered 10/01/24 Ordered By: Jerad Falk Quality Discharge Quality Measures VTE prophylaxis MD Attestestation MD Attestation Patient seen and examined with resident physician Dr. Quintanilla. Note reviewed, agree with findings and recommendations. Abdominal pain much better. Most likely related to constipation. Recommended to take stool softeners. And she is going to be discharged on Lantus 15 units twice daily along with the glipizide. Follow-up with me in 1 week
[2024-10-01 12:00] VITALS: BP 153/85; PULSE 70; RESP 18; TEMP 36.1; O2SAT 97
[2024-10-09 06:34] LABS: Insulin* 13.1 uIU/mL (< OR = 18.4)
== END 2024-10-01 11:24 | disposition home or self-care (01) ==
LOC: SERX 18:24 → SERHOLD 20:58 → S2NX 10-01 07:53 → SERHOLD 10-01 07:53
PROVIDERS: Family Medicine; Nurse Practitioner Primary Care; Admitting Provider Internal Medicine; Emergency Provider Emergency Medicine; PCP Internal Medicine; Visit Provider Internal Medicine
DX: E11.65 Type 2 diabetes mellitus with hyperglycemia (principal); E03.9 Hypothyroidism, unspecified; E66.9 Obesity, unspecified; E78.5 Hyperlipidemia, unspecified; I10 Essential (primary) hypertension; Z82.49 Family history of ischemic heart disease and other diseases of the circulatory system; Z83.3 Family history of diabetes mellitus; Z87.19 Personal history of other diseases of the digestive system; Z91.148 Patient's other noncompliance with medication regimen for other reason; Z01.810 Encounter for preprocedural cardiovascular examination
CPT/HCPCS: 36415; 70450; 70496; 70498; 74176; 80053; 80061; 80307; 80320; 81001; 82010; 82150; 82570; 82803; 83036; 83525; 83690; 83735; 83880; 84156; 84443; 84484; 84703; 85025; 85610; 85730; 87086; 93005; 96361; 96372; 96374; 96376; 99285; A4649; G0378; J1815; J2405; J7030; Q9967; A9270; G0480